=== PATIENT | male | born 1970 | race Caucasian/White ===

== ENCOUNTER → 2019-11-03 | Day surgery (SDC) | payer OTHER ==
[~2019-11-03] MED LIST: ACETAMINOPHEN 325 MG TABLET PO PRN; ALBUTEROL SULFATE 2.5 MG/3 ML NEBU. NEB PRN; AMLO10TA8 PO; ATROPINE 0.5 MG/5 ML DISP.SYRIN. IV PRN; CRESTOR10 MG PO; HYDR12.58 PO; IV RINGERS SOLUTION,LACTATED 1,000 ML IV SCH; LOSA100T14 PO; METF10007 PO; MULT-505 PO; ONDANSETRON PF 4 MG/2 ML VIAL. IV PRN; PHENOL ORAL SPRAY 177ML BOTTLE. MM PRN; PROPOFOL 40 ML IV ONE; diphenhydrAMINE 50 MG/ML VIAL IV PRN
[2019-11-03 12:05] VITALS: BP 141/102
--- NOTE | 2019-11-04 15:07 | PATHOLOGY ---
[facility] Accession Number: [id number] . 01 Material submitted: . colon - SIGMOID POLYP. Modifiers: sigmoid . 01 Clinical history: . None provided. . 02 Diagnosis: Colon biopsy, sigmoid polyp: - Tubular adenoma. . (JPM:adi; 11/04/2019) QMS 11/04/2019 0827 Local . 02 Comment: There is no high grade dysplasia or evidence of malignancy. . 02 Electronically signed: . Damion Boothe MD, Pathologist NPI- [id number] . 01 Gross description: . Received in formalin labeled "Romain Duarte, sigmoid polyp" is a 0.3 x 0.3 x 0.1 cm fragment of mondragon-brown soft tissue. The specimen [place] submitted entirely in A1. [place] [place] [facility] 11/03/2019 1926 Local . 02 Pathologist provided ICD-10: D12.5 . 02 CPT . 347002 Specimen Comment: A courtesy copy of this report has been sent to [phone] Specimen Comment: [phone] Specimen Comment: Report sent to / DR PEREA Performed at: 01 [facility] [address], [place] [id number] MD Anthony Cristobal MD Phone: [phone] Performed at: 02 [facility] [address] [place], [place] [id number] MD Damion Boothe MD Phone: [phone]
== END ==
LOC: SURG 09:41 → EDBD 11:00
PROVIDERS: ATTEND Emergency Medicine
DX: Z12.11 Encounter for screening for malignant neoplasm of colon (principal); D12.5 Benign neoplasm of sigmoid colon; I10 Essential (primary) hypertension; Z87.891 Personal history of nicotine dependence; Z98.52 Vasectomy status; Z72.89 Other problems related to lifestyle
CPT/HCPCS: 45380; 88305; J2704; J7120